=== PATIENT | male | born 1995 | race African-American/Black ===

== ENCOUNTER 2016-10-10 15:52 | Emergency (ER) | payer SELFPAY ==
[2016-10-10 16:05] VITALS: TEMP 97.7
[2016-10-10 16:06] VITALS: BMI 22.5
[2016-10-10 17:01] LABS: LEUKOCYTES/URINE TRACE (NEGATIVE); NITRITE/URINE NEG (NEGATIVE); URINE OCCULT BLOOD NEG (NEG/TRACE); WBC/URINE 20-30 (0-2)
[2016-10-10] MEDS ORDERED: AZITHROMYCIN 250 MG TAB PO ONE (17:37)
[2016-10-10] MEDS ORDERED: IBUPROFEN 600 MG TAB PO ONE (17:37)
[2016-10-10] MEDS ORDERED: LIDOCAINE 1% 2 ML (METHYLPARABEN FREE) ONE (17:42)
[2016-10-10] MEDS ORDERED: CEFTRIAXONE 250 MG VIAL IM ONE (17:45)
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
[2016-10-10 18:32] VITALS: BP 141/76; PULSE 60
[2016-10-13 09:30] LABS: GC BY NUCLEIC ACID AMP Negative (Negative)
[2016-10-13 09:31] LABS: CHLAMY BY NUCLEIC ACID AMP Positive (Negative); GC BY NUCLEIC ACID AMP Negative (Negative)
[2016-10-13 09:31] LABS: CHLAMY BY NUCLEIC ACID AMP Positive (Negative)
== END 2016-10-10 18:29 | disposition home or self-care (01) ==
LOC: EDMC 15:52
DX: N39.0 Urinary tract infection, site not specified (principal)
CPT/HCPCS: 81001; 87491; 87591; 96372; 99283; J0696; J2001; J3490